=== PATIENT | male | born 1965 | race Caucasian/White ===

== ENCOUNTER 2018-01-13 02:49 | Emergency (ER) | payer BC ==
[2018-01-13] MEDS ORDERED: Morphine INJ* 4 MG/ML 1 ML SYRINGE (NEW SYRINGE VERSION) IV ONE (03:13)
[2018-01-13] MEDS ORDERED: Aspirin 81 mg CHEW TAB* 81 MG TAB.CHEW PO ONE (03:13)
[2018-01-13] MEDS ORDERED: Metoclopramide IV* 5 MG/ML 2 ML VIAL IV SLOW PU ONE (03:14)
[2018-01-13] MEDS ORDERED: Morphine VIAL* 4 MG/ML VIAL (1 ml vial) IV ONE ×2 (03:18→03:20)
[2018-01-13 03:23] LABS: ABS Basophils 0 10^3/ul (0-0.2); ABS Eosinophils 0.1 10^3/ul (0-0.6); ABS Lymphocytes 1.4 10^3/ul (1.0-4.8); ABS Monocytes 0.4 10^3/ul (0-0.8); ABS Neutrophils 1.7 10^3/ul (1.5-7.7); ABS Nucleated RBC 0 10^3/ul; Eosinophil % 2.7 % (0-6); Hematocrit 45 % (42-52); Hemoglobin 15.8 g/dl (14.0-18.0); Lymphocyte % 38.5 % (25-47); Mean Corpuscular HGB Conc 35 g/dl (31-36); Mean Corpuscular Hemoglobin 33 pg (27-31); Mean Corpuscular Volume 95 fL (80-94); Mean Platelet Volume 8.1 um3 (7.4-10.4); Nucleated Red Blood Cells % 0.1; Platelet Count 193 10^3/ul (150-450); Red Blood Count 4.73 10^6/ul (4.0-5.4); Red Cell Distribution Width 13 % (10.5-15); White Blood Count 3.7 10^3/ul (3.5-10.8)
[2018-01-13 03:30] LABS: INR 0.84 (0.77-1.02)
[2018-01-13 03:34] LABS: EGFR Non-African American 76.4 (>60)
--- NOTE | 2018-01-13 05:14 | ED ---
Tonia Sher Gabriel, scribed for Dariana Sena MD on 01/13/18 at 0316 . HPI Chest Pain - HPI Summary HPI Summary: This patient is a 52 year old M presenting to [facility] with a chief complaint of left sided CP since 02:00, the pain awoke him from sleep. The patient rates the pain 2/10 in severity. Symptoms alleviated spontaneously, pt states the chest pain has resolved. Patient reports diaphoresis, LEON, left arm tingling, photophobia, left sided neck pain. Pt has sleep apnea and did not wear his mask tonight. - History of Current Complaint Chief Complaint: EDChestPainROMI Time Seen by Provider: 01/13/18 03:00 Hx Obtained From: Patient Time of Onset: 02:00 Timing: Constant Initial Severity: Mild Current Severity: Mild Pain Intensity: 2 Pain Scale Used: 0-10 Numeric Chest Pain Location: Left Anterior Chest Pain Radiates: No Character: Pressure/Squeezing, Sharp/Stabbing Associated Signs and Symptoms: Positive: Other: - diaphoresis, LEON, left arm tingling, photophobia, left sided neck pain. - Allergy/Home Medications Allergies/Adverse Reactions: Allergies Allergy/AdvReac Type Severity Reaction Status Date / Time methyl prednisone AdvReac Intermediate Tachycardia Uncoded 01/13/18 02:58 PMH/Surg Hx/FS Hx/Imm Hx Endocrine/Hematology History: Denies: Hx Diabetes, Hx Thyroid Disease Cardiovascular History: Reports: Hx Hypercholesterolemia, Hx Hypertension Denies: Hx Pacemaker/ICD Respiratory History: Denies: Hx Asthma, Hx Chronic Obstructive Pulmonary Disease (COPD) GI History: Denies: Hx Ulcer History: Denies: Hx Renal Disease Sensory History: Denies: Hx Hearing Aid Psychiatric History: Denies: Hx Panic Disorder - Surgical History Surgery Procedure, Year, and Place: 1976 TONSILS Infectious Disease History: No Infectious Disease History: Denies: Hx Hepatitis, Hx Human Immunodeficiency Virus (HIV), Traveled Outside the [place] in Last 30 Days - Family History Known Family History: Positive: Cardiac Disease - [place] , Hypertension, Diabetes - Social History Alcohol Use: Daily Substance Use Type: Reports: None Smoking Status (MU): Heavy Every Day Tobacco Smoker Review of Systems Positive: Skin Diaphoresis Positive: Photophobia Positive: Chest Pain Positive: Other - left sided neck pain Positive: Headache, Numbness - and tingling in the left arm All Other Systems Reviewed And Are Negative: Yes Physical Exam - Summary Physical Exam Summary: VITAL SIGNS: Reviewed. GENERAL: Patient is a well-developed and nourished male who is lying comfortable in the stretcher. Patient is not in any acute respiratory distress. HEAD AND FACE: No signs of trauma. No ecchymosis, hematomas or skull depressions. No sinus tenderness. EYES: PERRLA, EOMI x 2, No injected conjunctiva, no nystagmus. EARS: Hearing grossly intact. Ear canals and tympanic membranes are within normal limits. MOUTH: Oropharynx within normal limits. NECK: Supple, trachea is midline, no adenopathy, no JVD, no carotid bruit, no c- spine tenderness, neck with full ROM. CHEST: Symmetric, no tenderness at palpation LUNGS: Clear to auscultation bilaterally. No wheezing or crackles. CVS: Regular rate and rhythm, S1 and S2 present, no murmurs or gallops appreciated. ABDOMEN: Soft, non-tender. No signs of distention. No rebound no guarding, and no masses palpated. Bowel sounds are normal. EXTREMITIES: FROM in all major joints, no edema, no cyanosis or clubbing. NEURO: Alert and oriented x 3. No acute neurological deficits. Speech is normal and follows commands. SKIN: Dry and warm Triage Information Reviewed: Yes Vital Signs On Initial Exam: Initial Vitals Temp Pulse Resp BP Pulse Ox 97.8 F 102 16 160/106 96 01/13/18 02:50 01/13/18 02:50 01/13/18 02:50 01/13/18 02:50 01/13/18 02:50 Vital Signs Reviewed: Yes Diagnostics - Vital Signs Vital Signs Temp Pulse Resp BP Pulse Ox 01/13/18 02:50 97.8 F 102 16 160/106 96 - Laboratory Result Diagrams: 01/13/18 03:07 01/13/18 03:07 Lab Statement: Any lab studies that have been ordered have been reviewed, and results considered in the medical decision making process. - Radiology CXR Radiology Interpretation Completed By: Radiologist - no acute process - EKG 02:55 Cardiac Rate: NL EKG Rhythm: Sinus Rhythm - at 91 BPM EKG Interpretation: Normal axis. Normal interval. No ischemic changes Re-Evaluation - Re-Evaluation First Eval Re-Evaluation Time: 04:51 Change: Improved Comment: The patient feels better. Chest Pain Course/Dx - Course Assessment/Plan: This patient is a 52 year old M presenting to [facility] with a chief complaint of left sided CP since 02:00, the pain awoke him from sleep. The patient rates the pain 2/10 in severity. Symptoms alleviated spontaneously, pt states the chest pain has resolved. Patient reports diaphoresis, LEON, left arm tingling, photophobia, left sided neck pain. Pt has sleep apnea and did not wear his mask tonight. An EKG reveals Normal axis. Normal interval. No ischemic changes. CXR reveals, per radiologist, no acute process. Test results with no significant abnormalities except for a glucose of 125. In the ED course the patient was given morphine, reglan, and ASA. Pt is feeling better. Dx Atypical CP and headache. Patient will be discharged with and follow up from Dr. Yao. The patient is agreeable with this plan. - Diagnoses Provider Diagnoses: Atypical chest pain, Headache Discharge - Sign-Out/Discharge Documenting (check all that apply): Discharge - Discharge Plan Condition: Stable Disposition: HOME Patient Education Materials: Chest Pain (ED), General Headache (ED) Forms: *Work Release Referrals: Taqueria Yao MD [Medical Doctor] - As Soon As Possible Additional Instructions: Follow up with Dr. Yao as soon as possible and schedule a stress test before the end of this week. RETURN TO THE EMERGENCY DEPARTMENT FOR CHANGING OR WORSENING SYMPTOMS. The documentation as recorded by the Tonia tim Gabriel accurately reflects the service I personally performed and the decisions made by me, Dariana Sena MD.
[2018-01-13 05:17] VITALS: BP 116/76
--- NOTE | 2018-01-13 07:29 | RAD ---
INDICATION: Chest pain. COMPARISON: Comparison is made with a prior chest x-ray study from November 08, 2015. TECHNIQUE: A portable view of the chest was obtained. FINDINGS: Cardiac and mediastinal contours appear to be within normal limits. The lungs are clear. No pleural effusion is seen. IMPRESSION: NO EVIDENCE FOR ACUTE DISEASE.
== END 2018-01-13 04:53 | disposition home or self-care (01) ==
LOC: ED 02:49
DX: R07.9 Chest pain, unspecified (principal); H53.149 Visual discomfort, unspecified; M54.2 Cervicalgia; F17.210 Nicotine dependence, cigarettes, uncomplicated; R51 Headache
CPT/HCPCS: 36415; 71045; 80053; 82550; 83605; 83735; 84484; 85025; 85610; 85730; 93005; 96374; 96375; 99283; A9270-GY; J2270; J2765